=== PATIENT | male | born 1980 | race Caucasian/White ===

== ENCOUNTER 2021-01-02 16:04 | Emergency (ER) | payer BC ==
[2021-01-02 16:54] VITALS: TEMP 97.9
--- NOTE | 2021-01-02 18:37 | ED ---
General Adult HPI - General Chief complaint: Chest Pain Stated complaint: Chest Pain Time Seen by Provider: 01/02/21 18:20 Source: patient, RN notes reviewed, old records reviewed Mode of arrival: ambulatory Limitations: no limitations - History of Present Illness Initial comments: 40-year-old male presenting for evaluation of chest pain. Patient has had substernal upper chest pain for the past 6 days. He denies associated nausea vomiting. No dyspnea. He states he initially had some left flank pain and lower abdominal pain as well. And at one point had a right upper chest pain. Patient was urged presented emergency department by his mother. He has no previous history of CAD. He's had no cough or fever. No lower extremity pain or swelling. - Related Data Home Medications Medication Instructions Recorded Confirmed Ibuprofen [Motrin Ib] 400 mg PO Q8H PRN 01/02/21 01/02/21 Loratadine-Pseudoeph 10-240 mg 1 tab PO DAILY 01/02/21 01/02/21 [Claritin-D 24 Hour] Allergies Allergy/AdvReac Type Severity Reaction Status Date / Time peanut Allergy Unknown Verified 01/02/21 20:00 Penicillins Allergy Unknown Verified 01/02/21 20:00 Sulfa (Sulfonamide Allergy Unknown Verified 01/02/21 20:00 Antibiotics) walnut Allergy Unknown Verified 01/02/21 20:00 Review of Systems ROS Statement: Those systems with pertinent positive or pertinent negative responses have been documented in the HPI. ROS Other: All systems not noted in ROS Statement are negative. Past Medical History Past Medical History: No Reported History Additional Past Surgical History / Comment(s): carpal tunnel Past Psychological History: Anxiety Smoking Status: Never smoker Past Alcohol Use History: None Reported Past Drug Use History: None Reported General Exam Limitations: no limitations General appearance: alert, in no apparent distress Head exam: Present: atraumatic, normocephalic Eye exam: Present: normal appearance, PERRL ENT exam: Present: normal exam Neck exam: Present: normal inspection. Absent: tenderness, meningismus Respiratory exam: Present: normal lung sounds bilaterally. Absent: respiratory distress, wheezes Cardiovascular Exam: Present: regular rate, normal rhythm GI/Abdominal exam: Present: soft. Absent: distended, tenderness, guarding, rebound Extremities exam: Present: normal inspection, normal capillary refill. Absent: pedal edema, calf tenderness Neurological exam: Present: alert, oriented X3, CN II-XII intact. Absent: motor sensory deficit Psychiatric exam: Present: normal affect, normal mood Skin exam: Present: warm, dry, intact. Absent: cyanosis, diaphoretic, erythema Course Vital Signs 01/02/21 16:50 Temperature 97.9 F Pulse Rate 98 Respiratory 20 Rate Blood Pressure 137/87 O2 Sat by Pulse 100 Oximetry EKG Findings - EKG Comments: EKG Findings:: EKG: Normal sinus rhythm, low voltage, rate of 78, [place] interval 178, QRS duration 92, QTC 449, no ST segment elevation. Medical Decision Making - Medical Decision Making 40-year-old male with 6 days of chest pain. Pain is atypical, he did have some flank pain as well and some right upper chest pain. He is well-appearing with stable vitals. EKG sinus without ST segment elevation. Patient has a mild leukocytosis of uncertain etiology, normal CMP, negative troponin. Given the multifocal pain complaint and did CT his chest and pelvis with contrast which is negative for any acute abnormality, no dissection, no aneurysm, no acute findings. Patient very eager for discharge. I discussed case with his primary care physician Dr. Newton who had encouraged the patient presented to the emergency department. Will follow-up as an outpatient. - Lab Data Result diagrams: 01/02/21 19:07 01/02/21 19:07 Lab Results 01/02/21 01/02/21 01/02/21 Range/Units 19:07 19:07 19:07 WBC 12.1 H (3.8-10.6) k/uL RBC 5.71 (4.30-5.90) m/uL Hgb 15.9 (13.0-17.5) gm/dL Hct 48.3 (39.0-53.0) % MCV 84.5 (80.0-100.0) fL MCH 27.8 (25.0-35.0) pg MCHC 33.0 (31.0-37.0) g/dL RDW 13.5 (11.5-15.5) % Plt Count 289 (150-450) k/uL MPV 6.7 Neutrophils % 59 % Lymphocytes % 30 % Monocytes % 4 % Eosinophils % 4 % Basophils % 1 % Neutrophils # 7.1 (1.3-7.7) k/uL Lymphocytes # 3.6 (1.0-4.8) k/uL Monocytes # 0.5 (0-1.0) k/uL Eosinophils # 0.5 (0-0.7) k/uL Basophils # 0.1 (0-0.2) k/uL Sodium 138 (137-145) mmol/L Potassium 4.4 (3.5-5.1) mmol/L Chloride 104 (98-107) mmol/L Carbon Dioxide 25 (22-30) mmol/L Anion Gap 9 mmol/L BUN 11 (9-20) mg/dL Creatinine 0.72 (0.66-1.25) mg/dL Est GFR (CKD-EPI)AfAm >90 (>60 ml/min/1.73 sqM) Est GFR (CKD-EPI)NonAf >90 (>60 ml/min/1.73 sqM) Glucose 76 (74-99) mg/dL Calcium 9.9 (8.4-10.2) mg/dL Magnesium 2.0 (1.6-2.3) mg/dL Total Bilirubin 0.7 (0.2-1.3) mg/dL AST 37 (17-59) U/L ALT 43 (4-49) U/L Alkaline Phosphatase 82 (38-126) U/L Troponin I <0.012 (0.000-0.034) ng/mL NT-Pro-B Natriuret Pep pg/mL Total Protein 7.6 (6.3-8.2) g/dL Albumin 4.8 (3.5-5.0) g/dL Lipase 41 (23-300) U/L 01/02/21 Range/Units 19:07 WBC (3.8-10.6) k/uL RBC (4.30-5.90) m/uL Hgb (13.0-17.5) gm/dL Hct (39.0-53.0) % MCV (80.0-100.0) fL MCH (25.0-35.0) pg MCHC (31.0-37.0) g/dL RDW (11.5-15.5) % Plt Count (150-450) k/uL MPV Neutrophils % % Lymphocytes % % Monocytes % % Eosinophils % % Basophils % % Neutrophils # (1.3-7.7) k/uL Lymphocytes # (1.0-4.8) k/uL Monocytes # (0-1.0) k/uL Eosinophils # (0-0.7) k/uL Basophils # (0-0.2) k/uL Sodium (137-145) mmol/L Potassium (3.5-5.1) mmol/L Chloride (98-107) mmol/L Carbon Dioxide (22-30) mmol/L Anion Gap mmol/L BUN (9-20) mg/dL Creatinine (0.66-1.25) mg/dL Est GFR (CKD-EPI)AfAm (>60 ml/min/1.73 sqM) Est GFR (CKD-EPI)NonAf (>60 ml/min/1.73 sqM) Glucose (74-99) mg/dL Calcium (8.4-10.2) mg/dL Magnesium (1.6-2.3) mg/dL Total Bilirubin (0.2-1.3) mg/dL AST (17-59) U/L ALT (4-49) U/L Alkaline Phosphatase (38-126) U/L Troponin I (0.000-0.034) ng/mL NT-Pro-B Natriuret Pep 23 pg/mL Total Protein (6.3-8.2) g/dL Albumin (3.5-5.0) g/dL Lipase (23-300) U/L Disposition Clinical Impression: Atypical chest pain Disposition: HOME SELF-CARE Condition: Good Instructions (If sedation given, give patient instructions): Chest Pain (ED) Is patient prescribed a controlled substance at d/c from ED?: No Referrals: Sal Newton DO [Primary Care Provider] - 1-2 days Time of Disposition: 21:13
[2021-01-02 19:20] LABS: Basophils # (A) 0.1 k/uL (0-0.2); Basophils % (A) 1 %; Eosinophils # (A) 0.5 k/uL (0-0.7); Eosinophils % (A) 4 %; HCT 48.3 % (39.0-53.0); HGB 15.9 gm/dL (13.0-17.5); Lymphocytes # (A) 3.6 k/uL (1.0-4.8); Lymphocytes % (A) 30 %; MCH 27.8 pg (25.0-35.0); MCV 84.5 fL (80.0-100.0); Mean Platelet Volume 6.7; Monocytes # (A) 0.5 k/uL (0-1.0); Monocytes % (A) 4 %; Neutrophils # (A) 7.1 k/uL (1.3-7.7); Neutrophils % (A) 59 %; Platelet Count 289 k/uL (150-450); RBC 5.71 m/uL (4.30-5.90); RDW 13.5 % (11.5-15.5); WBC 12.1 k/uL (3.8-10.6)
[2021-01-02 19:31] LABS: ALT 43 U/L (4-49); AST 37 U/L (17-59); African American GFR (CKD) >90 (>60 ml/min/1.73 sqM); Albumin 4.8 g/dL (3.5-5.0); Alkaline Phosphatase 82 U/L (38-126); Anion Gap 9 mmol/L; Blood Urea Nitrogen 11 mg/dL (9-20); Calcium 9.9 mg/dL (8.4-10.2); Carbon Dioxide 25 mmol/L (22-30); Chloride 104 mmol/L (98-107); Glucose 76 mg/dL (74-99); Lipase 41 U/L (23-300); Non-African American GFR(CKD) >90 (>60 ml/min/1.73 sqM); Sodium 138 mmol/L (137-145); Total Bilirubin 0.7 mg/dL (0.2-1.3); Total Protein 7.6 g/dL (6.3-8.2)
[2021-01-02 19:38] LABS: Potassium 4.4 mmol/L (3.5-5.1)
--- NOTE | 2021-01-02 20:26 | CT ---
Exam: CTA CHEST, ABDOMEN AND PELVIS Clinical Indication: Chest and abdominal pain. Comparison: None. Technique: Axial CTA imaging is performed through the chest, abdomen and pelvis following bolus intra venous injection of 100 mL Isovue 370 intravenous contrast. Coronal, sagittal and MIPS reformats were reviewed. Findings: CT ANGIOGRAM: The thoracic aorta is grossly normal in caliber. There is no atherosclerotic disease. There is no ane urysmal dilatation, dissection or rupture within the thoracic aortic system. The takeoff of the great vessels is unremarkable in appearance. The abdominal aorta is grossly normal in caliber. There is no atherosclerotic disease. There is no ev idence of aneurysmal dilatation, dissection or rupture. The celiac artery, SMA, TEO, renal, iliac art eries and visualized branches are grossly intact without significant abnormality. Incidental left ret roaortic renal vein consistent with normal variant. There is adequate opacification of the pulmonary arteries. No evidence of a filling defect to indicat e embolus. CHEST: There is no significant focal consolidation, pleural effusion or pneumothorax. There is normal heart size without pericardial effusions. There are no suspicious pulmonary nodules. No evidence of lymphad enopathy. ABDOMEN/PELVIS: The liver, gallbladder, pancreas, bilateral adrenal glands and spleen are without acute abnormality.. No hydronephrosis or nephrolithiasis. Hepatic steatosis is seen. There is no bowel obstruction, free air or fluid. Normal appendix. No evidence of lymphadenopathy. The urinary bladder is unremarkable. OSSEOUS STRUCTURES: There is no acute fracture or dislocation of the imaged osseous structures. The vertebral and disc he ights are maintained throughout the spine. Impression: No acute abnormality of the CTA chest, abdomen and pelvis. Incidental findings as above.
[2021-01-02 21:27] VITALS: BP 147/93; PULSE 90; RESP 16
== END 2021-01-02 21:27 | disposition home or self-care (01) ==
LOC: EC 16:04
DX: R07.89 Other chest pain (principal); Z79.1 Long term (current) use of non-steroidal anti-inflammatories (NSAID); Z88.0 Allergy status to penicillin; Z88.2 Allergy status to sulfonamides
CPT/HCPCS: 93005; 83880; 80053; 83690; 83735; 84484; 85025; 71275; 74174; 99285; Q9967

== ENCOUNTER → 2021-10-13 | Outpatient (CLI) | payer BC ==
--- NOTE | 2021-10-13 21:22 | XR ---
EXAMINATION TYPE: XR KUB DATE OF EXAM: 10/13/2021 COMPARISON: CT dated 01/02/2021 INDICATION: Bilateral lower back pain. Rule out renal stones TECHNIQUE: 2 views of the abdomen in the supine position. FINDINGS: The renal shadows are partially obscured by the overlying colonic gas and fecal material. No definite radiopaque urinary calculi identified. Degenerative changes of the hip joints. Unremarkable sacroili ac joints. IMPRESSION: No definite radiopaque urinary calculi identified. Further CT assessment can be considered if clinica lly required.
== END | disposition home or self-care (01) ==
LOC: RADXRMAIN 15:51
PROVIDERS: ATTEND Urology
DX: R10.9 Unspecified abdominal pain (principal)
CPT/HCPCS: 74018